=== PATIENT | male | born 1930 | race Caucasian/White ===

== ENCOUNTER 2017-12-02 17:43 | Emergency (ER) | payer MEDICARE, OTHER ==
[2017-12-02 18:01] VITALS: TEMP 96.4
--- NOTE | 2017-12-02 18:15 | ED ---
General Adult HPI - General Chief complaint: Psychiatric Symptoms Stated complaint: Altered Mental Status Time Seen by Provider: 12/02/17 18:00 Source: EMS, RN notes reviewed Mode of arrival: EMS Limitations: altered mental status - History of Present Illness Initial comments: 87-year-old male transferred from [facility] with increased agitation and aggression. [facility] patient has been aggressive towards other staff and residents at the [facility]. Patient is unable to contribute to history. He will denied pain complaints. He is unable to answer other questions. Patient does have history of dementia, unknown baseline mental status. Patient received 0.5 mg of Ativan prior to arrival. - Related Data Home Medications Medication Instructions Recorded Confirmed Acetaminophen Tab [Tylenol Tab] 500 mg PO Q8H 12/02/17 12/02/17 Acetaminophen Tab [Tylenol Tab] 650 mg PO Q6H PRN 12/02/17 12/02/17 Aspirin [Children's Aspirin] 81 mg PO DAILY 12/02/17 12/02/17 Baclofen [Lioresal] 10 mg PO BID PRN 12/02/17 12/02/17 Bisacodyl 10 mg RECTAL Q72H PRN 12/02/17 12/02/17 Carbidopa-Levodopa 25-250 mg 1 tab PO DAILY@1200 12/02/17 12/02/17 [Sinemet 25-250] Carbidopa-Levodopa 25-250 mg 2 tab PO Q12H 12/02/17 12/02/17 [Sinemet 25-250] Divalproex Sodium [Depakote] 125 mg PO DAILY@1600 12/02/17 12/02/17 HYDROcodone/APAP 5-325MG [[place] 1 tab PO Q6HR PRN 12/02/17 12/02/17 5-325] LORazepam [Ativan] 0.5 mg PO BID 12/02/17 12/02/17 Magnesium Hydroxide [Milk of 2,400 mg PO Q72H PRN 12/02/17 12/02/17 Magnesia] Mirtazapine [Remeron] 15 mg PO HS@2000 12/02/17 12/02/17 Omeprazole [PriLOSEC] 20 mg PO AC-BRKFST 12/02/17 12/02/17 Vit A/Vit C/Vit E/Zinc/Copper 1 cap PO DAILY 12/02/17 12/02/17 [ICAPS SOFTGEL] rOPINIRole HCL [Requip] 2 mg PO Q12H 12/02/17 12/02/17 Previous Rx's Medication Instructions Recorded Nitrofurantoin Monohyd/M-Cryst 100 mg PO Q12HR #14 cap 12/02/17 [Macrobid] Allergies Allergy/AdvReac Type Severity Reaction Status Date / Time No Known Allergies Allergy Unverified 12/02/17 18:08 Review of Systems ROS Statement: Those systems with pertinent positive or pertinent negative responses have been documented in the HPI. ROS Other: All systems not noted in ROS Statement are negative. Limitations: ROS unobtainable due to patients medical condition Past Medical History Past Medical History: Cancer, Dementia, Osteoarthritis (OA), Pneumonia Additional Past Medical History / Comment(s): parkensons skin ca dementia History of Any Multi-Drug Resistant Organisms: Unobtainable Smoking Status: Unknown if ever smoked Past Alcohol Use History: Unable to Obtain Past Drug Use History: Unable to Obtain General Exam Limitations: altered mental status General appearance: alert, in no apparent distress Head exam: Present: atraumatic, normocephalic Eye exam: Present: normal appearance, PERRL, EOMI Neck exam: Present: normal inspection. Absent: tenderness Respiratory exam: Present: normal lung sounds bilaterally. Absent: respiratory distress Cardiovascular Exam: Present: regular rate, normal rhythm GI/Abdominal exam: Present: soft. Absent: distended, tenderness, guarding Extremities exam: Present: normal inspection, normal capillary refill. Absent: pedal edema Neurological exam: Present: alert. Absent: oriented X3, motor sensory deficit Psychiatric exam: Present: agitated Skin exam: Present: warm, dry, intact. Absent: cyanosis, diaphoretic Course Vital Signs 12/02/17 12/02/17 17:52 18:55 Temperature 96.4 F L Pulse Rate 89 84 Respiratory 16 18 Rate Blood Pressure 138/63 154/68 O2 Sat by Pulse 98 100 Oximetry - Reevaluation(s) Reevaluation #1: 12/02/17 2100 Case discussed with patient's nurse from [employer]. She states he was given Ativan just prior to EMS arrival. This is his normal dose he takes Ativan twice daily. He is evaluated by psychiatrist at [facility]. 12/02/17 20:56 Reevaluation #2: 12/02/17 20:56 Patient remains calm, no agitation or aggression while in the emergency department. EKG Findings - EKG Comments: EKG Findings:: EKG shows normal sinus rhythm, left axis deviation, LVH, ventricular rate 86, para over 184, QRS duration 102, QTC 459, no signs of acute ischemia Medical Decision Making - Medical Decision Making 87-year-old male presenting from [facility] with increasing agitation and aggression towards staff. No family is available at the time my evaluation. Patient does have history of dementia. Workup is initiated for was of worsening agitation and aggression. Laboratory studies reveal normal white blood cell count, stable hemoglobin, normal electrolytes. Head CT is obtained, shows atrophy with no acute intracranial process. Chest x-ray negative for focal pneumonia. Urinalysis shows 181 white blood cells and positive leukocyte esterase. Symptoms may be reported to UTI. Patient will be started on antibiotics. - Lab Data Result diagrams: 12/02/17 18:44 12/02/17 18:44 Lab Results 12/02/17 12/02/17 12/02/17 Range/Units 18:44 18:44 18:44 WBC 10.2 (3.8-10.6) k/uL RBC 3.52 L (4.30-5.90) m/uL Hgb 11.4 L (13.0-17.5) gm/dL Hct 32.9 L (39.0-53.0) % MCV 93.6 (80.0-100.0) fL MCH 32.5 (25.0-35.0) pg MCHC 34.7 (31.0-37.0) g/dL RDW 13.8 (11.5-15.5) % Plt Count 194 (150-450) k/uL Neutrophils % 79 % Lymphocytes % 11 % Monocytes % 8 % Eosinophils % 1 % Basophils % 0 % Neutrophils # 8.0 H (1.3-7.7) k/uL Lymphocytes # 1.1 (1.0-4.8) k/uL Monocytes # 0.8 (0-1.0) k/uL Eosinophils # 0.1 (0-0.7) k/uL Basophils # 0.0 (0-0.2) k/uL PT (9.0-12.0) sec INR (<1.2) APTT (22.0-30.0) sec Sodium 141 (137-145) mmol/L Potassium 4.4 (3.5-5.1) mmol/L Chloride 104 (98-107) mmol/L Carbon Dioxide 28 (22-30) mmol/L Anion Gap 9 mmol/L BUN 42 H (9-20) mg/dL Creatinine 1.03 (0.66-1.25) mg/dL Est GFR (MDRD) Af Amer >60 (>60 ml/min/1.73 sqM) Est GFR (MDRD) Non-Af >60 (>60 ml/min/1.73 sqM) Glucose 89 (74-99) mg/dL Calcium 9.4 (8.4-10.2) mg/dL Total Bilirubin 0.3 (0.2-1.3) mg/dL AST 18 (17-59) U/L ALT 20 L (21-72) U/L Alkaline Phosphatase 63 (38-126) U/L Total Creatine Kinase 72 (55-170) U/L CK-MB (CK-2) 1.0 (0.0-2.4) ng/mL CK-MB (CK-2) Rel Index 1.4 Total Protein 6.2 L (6.3-8.2) g/dL Albumin 3.5 (3.5-5.0) g/dL 12/02/17 Range/Units 18:44 WBC (3.8-10.6) k/uL RBC (4.30-5.90) m/uL Hgb (13.0-17.5) gm/dL Hct (39.0-53.0) % MCV (80.0-100.0) fL MCH (25.0-35.0) pg MCHC (31.0-37.0) g/dL RDW (11.5-15.5) % Plt Count (150-450) k/uL Neutrophils % % Lymphocytes % % Monocytes % % Eosinophils % % Basophils % % Neutrophils # (1.3-7.7) k/uL Lymphocytes # (1.0-4.8) k/uL Monocytes # (0-1.0) k/uL Eosinophils # (0-0.7) k/uL Basophils # (0-0.2) k/uL PT 10.3 (9.0-12.0) sec INR 1.0 (<1.2) APTT 23.1 (22.0-30.0) sec Sodium (137-145) mmol/L Potassium (3.5-5.1) mmol/L Chloride (98-107) mmol/L Carbon Dioxide (22-30) mmol/L Anion Gap mmol/L BUN (9-20) mg/dL Creatinine (0.66-1.25) mg/dL Est GFR (MDRD) Af Amer (>60 ml/min/1.73 sqM) Est GFR (MDRD) Non-Af (>60 ml/min/1.73 sqM) Glucose (74-99) mg/dL Calcium (8.4-10.2) mg/dL Total Bilirubin (0.2-1.3) mg/dL AST (17-59) U/L ALT (21-72) U/L Alkaline Phosphatase (38-126) U/L Total Creatine Kinase (55-170) U/L CK-MB (CK-2) (0.0-2.4) ng/mL CK-MB (CK-2) Rel Index Total Protein (6.3-8.2) g/dL Albumin (3.5-5.0) g/dL Disposition Clinical Impression: Agitation, UTI (urinary tract infection) Disposition: HOME SELF-CARE Condition: Good Instructions: Urinary Tract Infection in Men (ED) Prescriptions: Nitrofurantoin Monohyd/M-Cryst [Macrobid] 100 mg PO Q12HR #14 cap Referrals: Jose Chen MD [Primary Care Provider] - 1-2 days Time of Disposition: 21:00
[2017-12-02 18:55] LABS: Basophils % (A) 0 %; Eosinophils # (A) 0.1 k/uL (0-0.7); Eosinophils % (A) 1 %; HCT 32.9 % (39.0-53.0); HGB 11.4 gm/dL (13.0-17.5); Lymphocytes # (A) 1.1 k/uL (1.0-4.8); Lymphocytes % (A) 11 %; MCH 32.5 pg (25.0-35.0); MCHC 34.7 g/dL (31.0-37.0); MCV 93.6 fL (80.0-100.0); Mean Platelet Volume 7.9; Monocytes # (A) 0.8 k/uL (0-1.0); Monocytes % (A) 8 %; Neutrophils % (A) 79 %; Platelet Count 194 k/uL (150-450); RBC 3.52 m/uL (4.30-5.90); RDW 13.8 % (11.5-15.5); WBC 10.2 k/uL (3.8-10.6)
[2017-12-02 18:57] VITALS: PULSE 84
[2017-12-02 19:03] LABS: ALT 20 U/L (21-72); AST 18 U/L (17-59); Albumin 3.5 g/dL (3.5-5.0); Alkaline Phosphatase 63 U/L (38-126); Anion Gap 9 mmol/L; Blood Urea Nitrogen 42 mg/dL (9-20); Calcium 9.4 mg/dL (8.4-10.2); Carbon Dioxide 28 mmol/L (22-30); Chloride 104 mmol/L (98-107); Glucose 89 mg/dL (74-99); Partial Thromboplastin Time 23.1 sec (22.0-30.0); Potassium 4.4 mmol/L (3.5-5.1); Prothrombin Time 10.3 sec (9.0-12.0); Sodium 141 mmol/L (137-145); Total Bilirubin 0.3 mg/dL (0.2-1.3); Total Protein 6.2 g/dL (6.3-8.2)
--- NOTE | 2017-12-02 20:21 | CT ---
EXAMINATION TYPE: CT brain wo con DATE OF EXAM: 12/02/2017 COMPARISON: NONE INDICATION: Altered mental status. DLP: 1168 mGycm, Automated exposure control for dose reduction was used. CONTRAST: None CT of the brain is performed utilizing 3 mm thick sections through the posterior fossa and 3 mm thick sections through the remaining calvarium. Study is performed within 24 hours of arrival to the hosp [facility]. No abnormal hyperdensity is present to suggest an acute intracranial hemorrhage. No mass lesion is evident. No acute infarcts are evident. There is periventricular white matter hypodensity, likely on the basis of chronic white matter ischemic changes. Ventricles and sulci are very prominent for the patient age. Paranasal sinuses and mastoid air cells within the [id number] are clear. IMPRESSIONS: 1. Atrophy with periventricular white matter ischemic change.
--- NOTE | 2017-12-02 20:33 | XR ---
EXAMINATION TYPE: XR chest 1V portable DATE OF EXAM: 12/02/2017 COMPARISON: NONE INDICATION: Altered mental status TECHNIQUE: Single frontal view of the chest is obtained. FINDINGS: The heart size is normal. The pulmonary vasculature is normal. There is some very subtle stranding at the lung bases. Minimal subsegmental atelectasis is not exclud ed. This is very mild. IMPRESSION: 1. Very minimal subsegmental atelectasis may be at the lung bases. The lungs are otherwise clear.
[2017-12-02 20:58] LABS: Amorphous Sediment,Urine Rare /hpf; Appearance,Urine Cloudy (Clear); Bacteria,Urine Occasional /hpf; Bilirubin,Urine Negative (Negative); Blood,Urine Negative (Negative); Color,Urine Yellow; Glucose,Urine (UA) Negative (Negative); Ketones,Urine Trace (Negative); Leukocyte Esterase,Urine Large (Negative); Mucus,Urine Occasional /hpf; PH, Urine 6.5 (5.0-8.0); Protein,Urine Trace (Negative); RBC,Urine 2 /hpf (0-5); Specific Gravity,Urine 1.021 (1.001-1.035); Urobilinogen,Urine <2.0 mg/dL (<2.0); WBC,Urine 181 /hpf (0-5)
[2017-12-02] MEDS ORDERED: cefTRIAXone IN SWFI 1,000 MG/10 ML SYRINGE IVP STA (21:03)
[2017-12-02 21:06] LABS: Amphetamine Screen,Urine Not Detected (NotDetected); Barbiturate Screen,Urine Not Detected (NotDetected); Benzodiazepines Screen,Urine Detected (NotDetected); Cocaine Screen,Urine Not Detected (NotDetected); Methadone Screen, Urine Not Detected (NotDetected); Opiate Screen,Urine Detected (NotDetected); Oxycodone Screen, Urine Not Detected (NotDetected); Phencyclidine Screen,Urine Not Detected (NotDetected); Tricyclic Antidepressant,Urine Not Detected (NotDetected); Urn Cannabinoid Scrn Not Detected (NotDetected)
[2017-12-02 21:33] VITALS: BP 145/66; RESP 16
== END 2017-12-02 21:58 | disposition home or self-care (01) ==
LOC: EC 17:43
DX: N39.0 Urinary tract infection, site not specified (principal); R45.1 Restlessness and agitation; G31.9 Degenerative disease of nervous system, unspecified; R41.82 Altered mental status, unspecified; G20 Parkinson's disease; F02.81 Dementia in other diseases classified elsewhere, unspecified severity, with behavioral disturbance; M19.90 Unspecified osteoarthritis, unspecified site; Z79.82 Long term (current) use of aspirin; Z79.899 Other long term (current) drug therapy
CPT/HCPCS: 36415; 93005; 80053; 82550; 82553; 85025; 85610; 85730; 81001; 80306; 87086; 71045; 70450; 99285; 96374; J0696; 87077; 87186

== ENCOUNTER 2019-01-02 13:47 | Inpatient (IN) | payer MEDICARE, OTHER ==
[2019-01-02] MEDS ORDERED: SODIUM CHLORIDE 0.9% 1,000 ML IV STA ×2 (13:56)
--- NOTE | 2019-01-02 14:06 | ED ---
Fever HPI - General Chief Complaint: Fever Stated Complaint: Dehydration Time Seen by Provider: 01/02/19 13:47 Source: patient, EMS, RN notes reviewed, old records reviewed Mode of arrival: EMS Limitations: no limitations - History of Present Illness Initial Comments: This is a 88-year-old male who presents by EMS from a local custodial with complaints basically a failure to thrive. Patient does have pneumonia was diagnosed also with influenza type A and the first of this month he's has had decreased oral intake. He normally is awake and alert though confused because of his dementia. Patient has been declining over the past 2-3 days. No other information is available other than on record or present with the patient at this time. MD Complaint: fever, malaise, other - Related Data Home Medications Medication Instructions Recorded Confirmed Acetaminophen Tab [Tylenol Tab] 500 mg PO Q8H PRN 12/02/17 01/02/19 Aspirin [Children's Aspirin] 81 mg PO HS 12/02/17 01/02/19 Baclofen [Lioresal] 10 mg PO BID PRN 12/02/17 01/02/19 Bisacodyl 10 mg RECTAL Q72H PRN 12/02/17 01/02/19 Carbidopa-Levodopa 25-250 mg 1 tab PO PC-LUNCH 12/02/17 01/02/19 [Sinemet 25-250] Carbidopa-Levodopa 25-250 mg 2 tab PO BID@07,199912/02/17 01/02/19 [Sinemet 25-250] Divalproex Sodium [Depakote] 125 mg PO HS 12/02/17 01/02/19 HYDROcodone/APAP 5-325MG [[place] 1 tab PO BID 12/02/17 01/02/19 5-325] LORazepam [Ativan] 0.5 mg PO BID 12/02/17 01/02/19 Magnesium Hydroxide [Milk of 2,400 mg PO Q72H PRN 12/02/17 01/02/19 Magnesia] Mirtazapine [Remeron] 15 mg PO HS@199912/02/17 01/02/19 rOPINIRole HCL [Requip] 2 mg PO BID@0700,199912/02/17 01/02/19 Acetaminophen Suppository [Tylenol 650 mg RECTAL Q6H PRN 01/02/19 01/02/19 Suppository] Divalproex Sodium 250 mg PO DAILY 01/02/19 01/02/19 HYDROcodone/APAP 5-325MG [[place] 1 tab PO Q8H PRN 01/02/19 01/02/19 5-325] Levofloxacin [Levaquin] 500 mg PO DAILY 01/02/19 01/02/19 Multivit-Min/FA/Lycopen/Lutein 1 tab PO HS 01/02/19 01/02/19 [Centrum Silver Tablet] Oseltamivir [Tamiflu] 75 mg PO Q12HR 01/02/19 01/02/19 Polyethylene Glycol 3350 [Miralax] 17 gm PO HS 01/02/19 01/02/19 Ranitidine HCl [Zantac] 75 mg PO DAILY 01/02/19 01/02/19 Sennosides [Senna] 17.2 mg PO HS 01/02/19 01/02/19 Allergies Allergy/AdvReac Type Severity Reaction Status Date / Time No Known Allergies Allergy Verified 01/02/19 14:08 Review of Systems ROS Statement: Those systems with pertinent positive or pertinent negative responses have been documented in the HPI. ROS Other: All systems not noted in ROS Statement are negative. Limitations: ROS unobtainable due to patients medical condition Past Medical History Past Medical History: Cancer, Dementia, Osteoarthritis (OA), Pneumonia Additional Past Medical History / Comment(s): parkensons skin ca dementia History of Any Multi-Drug Resistant Organisms: Unobtainable Past Surgical History: Unable to Obtain Past Psychological History: No Psychological Hx Reported Smoking Status: Unknown if ever smoked Past Alcohol Use History: Unable to Obtain Past Drug Use History: Unable to Obtain General Exam - General Exam Comments Initial Comments: This is a well-developed sec appearing male who was awake alert but lethargic Limitations: no limitations General appearance: alert, lethargic Head exam: Present: atraumatic, normocephalic, normal inspection Eye exam: Present: normal appearance, PERRL, EOMI. Absent: scleral icterus, conjunctival injection, periorbital swelling ENT exam: Present: mucous membranes dry Neck exam: Present: normal inspection, full ROM, other. Absent: tenderness, meningismus, lymphadenopathy Respiratory exam: Present: rhonchi (The pleural lobe), decreased breath sounds (ALLERGY reported) Cardiovascular Exam: Present: regular rate, normal rhythm, normal heart sounds. Absent: systolic murmur, diastolic murmur, rubs, gallop, clicks GI/Abdominal exam: Present: soft, normal bowel sounds. Absent: distended, tenderness, guarding, rebound, rigid Extremities exam: Present: normal inspection, full ROM, normal capillary refill. Absent: tenderness, pedal edema, joint swelling, calf tenderness Back exam: Present: normal inspection Neurological exam: Present: alert, altered, CN II-XII intact. Absent: motor sensory deficit Psychiatric exam: Present: normal mood, flat affect Skin exam: Present: warm, dry, intact, normal color. Absent: rash Course Vital Signs 01/02/19 13:54 Temperature 99.8 F H Pulse Rate 90 Respiratory 22 Rate Blood Pressure 140/76 O2 Sat by Pulse 96 Oximetry Medical Decision Making - Medical Decision Making The patient will be admitted I did discuss the case with Dr. Cunningham. Patient does have fever bilateral pneumonia dehydration and failure to thrive - Lab Data Result diagrams: 01/02/19 14:10 01/02/19 14:10 Lab Results 01/02/19 01/02/19 01/02/19 Range/Units 14:10 14:10 14:10 WBC 9.5 (3.8-10.6) k/uL RBC 4.18 L (4.30-5.90) m/uL Hgb 13.3 (13.0-17.5) gm/dL Hct 39.9 (39.0-53.0) % MCV 95.5 (80.0-100.0) fL MCH 31.8 (25.0-35.0) pg MCHC 33.3 (31.0-37.0) g/dL RDW 14.1 (11.5-15.5) % Plt Count 169 (150-450) k/uL Neutrophils % 83 % Lymphocytes % 11 % Monocytes % 4 % Eosinophils % 1 % Basophils % 0 % Neutrophils # 7.9 H (1.3-7.7) k/uL Lymphocytes # 1.0 (1.0-4.8) k/uL Monocytes # 0.4 (0-1.0) k/uL Eosinophils # 0.1 (0-0.7) k/uL Basophils # 0.0 (0-0.2) k/uL PT (9.0-12.0) sec INR (<1.2) APTT (22.0-30.0) sec Sodium 148 H (137-145) mmol/L Potassium 4.6 (3.5-5.1) mmol/L Chloride 110 H (98-107) mmol/L Carbon Dioxide 30 (22-30) mmol/L Anion Gap 8 mmol/L BUN 71 H (9-20) mg/dL Creatinine 1.56 H (0.66-1.25) mg/dL Est GFR (CKD-EPI)AfAm 45 (>60 ml/min/1.73 sqM) Est GFR (CKD-EPI)NonAf 39 (>60 ml/min/1.73 sqM) Glucose 82 (74-99) mg/dL Plasma Lactic Acid Sergo (0.7-2.0) mmol/L Calcium 9.4 (8.4-10.2) mg/dL Magnesium 2.6 H (1.6-2.3) mg/dL Total Bilirubin 0.7 (0.2-1.3) mg/dL AST 63 H (17-59) U/L ALT 32 (21-72) U/L Alkaline Phosphatase 65 (38-126) U/L Creatine Kinase 742 H (55-170) U/L Troponin I (0.000-0.034) ng/mL NT-Pro-B Natriuret Pep 506 pg/mL Total Protein 6.9 (6.3-8.2) g/dL Albumin 3.7 (3.5-5.0) g/dL 01/02/19 01/02/19 01/02/19 Range/Units 14:10 14:10 14:10 WBC (3.8-10.6) k/uL RBC (4.30-5.90) m/uL Hgb (13.0-17.5) gm/dL Hct (39.0-53.0) % MCV (80.0-100.0) fL MCH (25.0-35.0) pg MCHC (31.0-37.0) g/dL RDW (11.5-15.5) % Plt Count (150-450) k/uL Neutrophils % % Lymphocytes % % Monocytes % % Eosinophils % % Basophils % % Neutrophils # (1.3-7.7) k/uL Lymphocytes # (1.0-4.8) k/uL Monocytes # (0-1.0) k/uL Eosinophils # (0-0.7) k/uL Basophils # (0-0.2) k/uL PT 10.5 (9.0-12.0) sec INR 1.0 (<1.2) APTT 31.2 H (22.0-30.0) sec Sodium (137-145) mmol/L Potassium (3.5-5.1) mmol/L Chloride (98-107) mmol/L Carbon Dioxide (22-30) mmol/L Anion Gap mmol/L BUN (9-20) mg/dL Creatinine (0.66-1.25) mg/dL Est GFR (CKD-EPI)AfAm (>60 ml/min/1.73 sqM) Est GFR (CKD-EPI)NonAf (>60 ml/min/1.73 sqM) Glucose (74-99) mg/dL Plasma Lactic Acid Sergo 1.4 (0.7-2.0) mmol/L Calcium (8.4-10.2) mg/dL Magnesium (1.6-2.3) mg/dL Total Bilirubin (0.2-1.3) mg/dL AST (17-59) U/L ALT (21-72) U/L Alkaline Phosphatase (38-126) U/L Creatine Kinase (55-170) U/L Troponin I 0.027 (0.000-0.034) ng/mL NT-Pro-B Natriuret Pep pg/mL Total Protein (6.3-8.2) g/dL Albumin (3.5-5.0) g/dL - EKG Data -: EKG Interpreted by [place] EKG shows normal: sinus rhythm (EKG shows sinus rhythm of 92. Interval 160 QRS duration 100 daily since QTC 360/445 with anterior fascicular block and minimal voltage criteria for LVH anteroseptal infarct of undetermined. Occasional PACs) - Radiology Data Radiology results: report reviewed (Bibasilar infiltrates some evidence of perihilar infiltrate), image reviewed Disposition Clinical Impression: Influenza, Bilateral pneumonia, Dehydration, Renal insufficiency syndrome, Failure to thrive in adult, Alzheimer's dementia Disposition: ADMITTED IP TO THIS [facility] Condition: Fair Referrals: Nonstaff,Physician [Primary Care Provider] - 1-2 days
[2019-01-02 14:35] LABS: Basophils % (A) 0 %; Eosinophils # (A) 0.1 k/uL (0-0.7); Eosinophils % (A) 1 %; HCT 39.9 % (39.0-53.0); HGB 13.3 gm/dL (13.0-17.5); Lymphocytes % (A) 11 %; MCH 31.8 pg (25.0-35.0); MCHC 33.3 g/dL (31.0-37.0); MCV 95.5 fL (80.0-100.0); Mean Platelet Volume 8.7; Monocytes # (A) 0.4 k/uL (0-1.0); Monocytes % (A) 4 %; Neutrophils # (A) 7.9 k/uL (1.3-7.7); Neutrophils % (A) 83 %; Platelet Count 169 k/uL (150-450); RBC 4.18 m/uL (4.30-5.90); RDW 14.1 % (11.5-15.5); WBC 9.5 k/uL (3.8-10.6)
[2019-01-02 14:43] LABS: Partial Thromboplastin Time 31.2 sec (22.0-30.0); Prothrombin Time 10.5 sec (9.0-12.0)
[2019-01-02 15:13] LABS: Albumin 3.7 g/dL (3.5-5.0); Calcium 9.4 mg/dL (8.4-10.2); Magnesium 2.6 mg/dL (1.6-2.3); Potassium 4.6 mmol/L (3.5-5.1); Total Bilirubin 0.7 mg/dL (0.2-1.3); Total Protein 6.9 g/dL (6.3-8.2)
--- NOTE | 2019-01-02 15:35 | XR ---
EXAMINATION TYPE: XR chest 2V DATE OF EXAM: 01/02/2019 COMPARISON: 12/02/2017 TECHNIQUE: PA and lateral views submitted. HISTORY: Difficulty breathing FINDINGS: There is bilateral infiltrates and small effusions. There are calcified nodule suggestive of granulom a in the left lung. Atherosclerotic change aorta. Diffuse osteopenia. No pneumothorax. Heart is enlar ged. Degenerative changes of the spine. IMPRESSION: 1. Bilateral lower lobe areas of infiltrate with patchy right perihilar infiltrate correlate for pneu monia otherwise consider CHF. Underlying COPD suspected. 2. Nodule left upper lobe lingular segment appears related to granuloma stable from prior exam.
[2019-01-02] MEDS ORDERED: PNEUMONIA PROTOCOL UTILIZED 1 EACH MISC PO PRN (16:17)
[2019-01-02] MEDS ORDERED: AZITHROMYCIN 500 MG in SODIUM CHLORIDE 0.9% 250 ML IVPB STA (16:17)
[2019-01-02] MEDS ORDERED: BISACODYL 10 MG SUPP RECTAL PRN (16:18)
[2019-01-02] MEDS ORDERED: HYDROcodone/APAP 5-325MG 1 EACH TAB PO PRN (16:18)
[2019-01-02] MEDS ORDERED: BACLOFEN 10 MG TAB PO PRN (16:18)
[2019-01-02] MEDS ORDERED: MAGNESIUM HYDROXIDE 2,400 MG/10 ML CUP PO PRN (16:18)
[2019-01-02] MEDS ORDERED: ACETAMINOPHEN TAB 500 MG TAB PO PRN (16:18)
[2019-01-02] MEDS ORDERED: ALPRAZolam 0.25 MG TAB PO PRN (18:04)
[2019-01-02] MEDS: SODIUM CHLORIDE 0.9% 1,000 ML IV SCH (19:40)
[2019-01-02] MEDS: IPRATROPIUM-ALBUTEROL 3 ML NEB INHALATION SCH (20:36)
[2019-01-02] MEDS: SYMBICORT 160-4.5 MCG INHALER INHALATION SCH (20:40)
--- NOTE | 2019-01-02 21:02 | HP ---
HISTORY AND PHYSICAL DATE OF SERVICE: 01/02/2019 CHIEF COMPLAINTS: Shortness of breath and cough and fever. HISTORY OF PRESENT ILLNESS: This 88-year-old gentleman with a past medical history of multiple medical problems, including dementia, history of DJD, history of Parkinson's, being followed by Dr. Cannon in the [facility], was complaining of increased weakness, tiredness, fever, cough and sputum. The patient was diagnosed apparently to have flu earlier this month and was being treated for pneumonia. Because of a decline over the last 2 or 3 days, patient was sent to [facility] and admitted for further evaluation and treatment. Chest x-ray showed some cardiomegaly and possible pneumonia also. The patient is nonverbal and unable to give a coherent history. Most of the history has been taken from my discussion with staff and review of the chart at this time. PAST MEDICAL HISTORY: 1. History of dementia. 2. History of DJD. 3. History of pneumonia. 4. Parkinson's. 5. History of skin cancer. HOME MEDICATIONS: 1. Requip 2 mg p.o. b.i.d. 2. Senna 17.2 mg at bedtime. 3. Zantac 75 mg p.o. daily. 4. MiraLAX 17 grams daily. 5. Tamiflu 75 mg p.o. b.i.d. 6. Multivitamins 1 p.o. daily. 7. Remeron 15 mg at bedtime. 8. Milk of Magnesia 2400 q.72 hours. 9. Levaquin 500 mg p.o. daily. 10.Ativan 0.5 mg b.i.d. 11.[place]man 5 mg b.i.d. 12.Depakote 125 mg p.o. at bedtime. 13.Depakote 250 mg p.o. daily. 14.Sinemet 25/250 one at lunch and tablets p.o. b.i.d. 15.Bisacodyl 10 mg rectally p.r.n. 16.Baclofen 10 mg b.i.d. p.r.n. 17.Aspirin 81 mg at bedtime. 18.Tylenol p.r.n. 19.Tylenol suppository 650 q.6 p.r.n. ALLERGIES: NONE. Family history, social history, review of systems could not be taken because of the patient's change in mental status. PHYSICAL EXAMINATION: Patient is conscious but confused. Pulse is 87, blood pressure 180/74, respiration 15, temperature 98.7, pulse ox 92% on 2 L. HEENT: Conjunctivae normal. Oral mucosa moist. NECK: No jugular venous distention. No carotid bruit. No lymph node enlargement. CARDIOVASCULAR SYSTEM: S1, S2 muffled. RESPIRATORY SYSTEM: Breath sounds diminished at the bases. A few scattered rhonchi and crackles. ABDOMEN: Soft, non-tender. No mass palpable. LEGS: No edema. No swelling. NERVOUS SYSTEM: Full exam could not be taken. Tone is increased. Diffuse tremors also present, suggestive of parkinsonism. LYMPHATICS: No lymph node palpable in neck, axillae or groin. SKIN: No ulcer, rash, bleeding. JOINTS: No active deforming arthropathy. LABS: WBC 9.5, hemoglobin 13.3. Sodium 148, potassium 4.6, creatinine 1.56, and magnesium is 2.6. Creatine kinase 742. ASSESSMENT: 1. Bilateral pneumonia with possible sepsis. 2. Change in mental status, acute on chronic metabolic encephalopathy. 3. Parkinson's. 4. Recent flu. 5. Hyponatremia with dehydration with mild acute renal failure with prerenal acute renal failure. 6. Moderate to severe protein-calorie malnutrition. 7. Increased creatine kinase and mild rhabdomyolysis. 8. History of dementia. 9. History of degenerative joint disease. 10.History of skin cancer. RECOMMENDATIONS AND DISCUSSION: In this 88-year-old gentleman who presented with multiple complex medical issues, we will monitor the patient closely, continue the current management, continue symptomatic treatment, continue with bronchodilators, continue with the antiparkinson medications. I would recommend broad-spectrum IV antibiotics. Obtain cultures. Pulmonary consultation. A 2D echo with Doppler to evaluate the cardiac status. Otherwise, resume the home medications. DVT prophylaxis. Prognosis guarded because of multiple complex medical issues. Further recommendations to follow. A copy of this dictation is being forwarded to Dr. Cannon, who is the primary physician. MMNIKOL / AUDREYN: [id number] /
[2019-01-02] MEDS: CARBIDOPA-LEVODOPA 25-250 MG 1 EACH TAB PO SCH (21:28)
[2019-01-02] MEDS: OSELTAMIVIR 60 MG/10 ML ORAL SYRINGE PO SCH (21:29)
[2019-01-02] MEDS: DIVALPROEX SPRINKLE 125 MG CAP.SPRINK PO SCH (21:29)
[2019-01-02] MEDS: LORazepam 0.5 MG TAB PO SCH (21:29)
[2019-01-02] MEDS: ASPIRIN 81 MG PO SCH (21:29)
[2019-01-02] MEDS: MIRTAZAPINE 15 MG TAB PO SCH (21:29)
[2019-01-02] MEDS: HEPARIN SODIUM,PORCINE 5,000 UNIT/ML 1 ML VIAL SQ SCH (21:29)
[2019-01-02] MEDS: SENNOSIDES 8.6 MG TAB PO SCH (21:30)
[2019-01-02] MEDS: POLYETHYLENE GLYCOL 3350 17 GM POWD.PACK PO SCH (21:30)
[2019-01-02] MEDS: MULTIVITAMINS, THERA 1 EACH TAB PO SCH (21:38)
[2019-01-03] MEDS: IPRATROPIUM-ALBUTEROL 3 ML NEB INHALATION PRN (00:02)
[2019-01-03 02:37] LABS: Appearance,Urine Clear (Clear); Bacteria,Urine Rare /hpf; Bilirubin,Urine Negative (Negative); Blood,Urine Small (Negative); Color,Urine Yellow; Glucose,Urine (UA) Negative (Negative); Ketones,Urine 1+ (Negative); Leukocyte Esterase,Urine Negative (Negative); Mucus,Urine Occasional /hpf; Nitrite,Urine Negative (Negative); PH, Urine 5.5 (5.0-8.0); Protein,Urine 1+ (Negative); RBC,Urine <1 /hpf (0-5); Specific Gravity,Urine 1.026 (1.001-1.035); Urobilinogen,Urine <2.0 mg/dL (<2.0); WBC,Urine 4 /hpf (0-5)
[2019-01-03] MEDS: SODIUM CHLORIDE 0.9% 1,000 ML IV SCH ×3 (04:18→23:00)
[2019-01-03 04:42] VITALS: BMI 17.7
[2019-01-03] MEDS: LORazepam 0.5 MG TAB PO SCH ×3 (07:59→21:53)
[2019-01-03] MEDS: PANTOPRAZOLE 40 MG TABLET PO SCH (07:59)
[2019-01-03] MEDS: DIVALPROEX 250 MG TABLET.DR PO SCH (08:00)
[2019-01-03] MEDS: FAMOTIDINE 20 MG TAB PO SCH (08:00)
[2019-01-03] MEDS: AZITHROMYCIN 500 MG TAB PO SCH (08:01)
[2019-01-03] MEDS: CARBIDOPA-LEVODOPA 25-250 MG 1 EACH TAB PO SCH ×3 (08:02→19:51)
[2019-01-03] MEDS: HEPARIN SODIUM,PORCINE 5,000 UNIT/ML 1 ML VIAL SQ SCH ×2 (08:06→20:47)
[2019-01-03] MEDS: IPRATROPIUM-ALBUTEROL 3 ML NEB INHALATION SCH ×4 (08:58→21:21)
[2019-01-03] MEDS: SYMBICORT 160-4.5 MCG INHALER INHALATION SCH ×2 (08:58→21:23)
[2019-01-03 09:27] LABS: Basophils % (A) 0 %; Eosinophils % (A) 0 %; HCT 34.7 % (39.0-53.0); HGB 11.6 gm/dL (13.0-17.5); Lymphocytes % (A) 14 %; MCH 32.4 pg (25.0-35.0); MCHC 33.4 g/dL (31.0-37.0); Mean Platelet Volume 8.8; Monocytes # (A) 0.4 k/uL (0-1.0); Monocytes % (A) 6 %; Neutrophils # (A) 5.3 k/uL (1.3-7.7); Neutrophils % (A) 78 %; Platelet Count 133 k/uL (150-450); RBC 3.58 m/uL (4.30-5.90); RDW 13.7 % (11.5-15.5); WBC 6.8 k/uL (3.8-10.6)
[2019-01-03 09:45] LABS: Calcium 8.4 mg/dL (8.4-10.2)
--- NOTE | 2019-01-03 11:03 | ECHOF ---
Referral Reason:chf MEASUREMENTS -------- HEIGHT: 180.3 cm WEIGHT: 55.8 kg BP: RVIDd: 1.8 cm (< 3.3) IVSd: 0.7 cm (0.6 - 1.1) LVIDd: 5.0 cm (3.9 - 5.3) LVPWd: 0.9 cm (0.6 - 1.1) IVSs: 1.3 cm LVIDs: 3.6 cm LVPWs: 1.3 cm LAESV Index (A-L): 31.58 ml/m Ao Diam: 3.3 cm (2.0 - 3.7) AV Cusp: 1.6 cm (1.5 - 2.6) LA Diam: 2.9 cm (2.7 - 3.8) MV EXCURSION: 20.347 mm (> 18.000) MV EF SLOPE: 126 mm/s (70 - 150) EPSS: 0.8 cm MV E Cooper: 0.64 m/s MV DecT: 198 ms MV A Cooper: 0.91 m/s MV E/A Ratio: 0.70 AR PHT: 281 ms RAP: 5.00 mmHg RVSP: 38.46 mmHg FINDINGS -------- Sinus rhythm with extra systolic beats. Pt is uncooperative The left ventricular size is normal. Left ventricular wall thickness is normal. Overall left vent ricular systolic function is low-normal with, an EF between 50 - 55 %. The right ventricle is normal in size. LA is midly dilated 29-33ml/m2. The right atrial size is normal. Aortic valve is trileaflet and is mildly thickened. There is mild aortic regurgitation. The mitral valve leaflets are mildly thickened. Mild mitral annular calcification present. Mild-t o-moderate mitral regurgitation is present. Mild tricuspid regurgitation present. There is mild pulmonary hypertension. The right ventricular systolic pressure, as measured by Doppler, is 38.46mmHg. Pulmonic valve appears structurally normal. The aortic root size is normal. IVC Not well visulized. There is a small, generalized pericardial effusion present. CONCLUSIONS -------- 1. Sinus rhythm with extra systolic beats. 2. Pt is uncooperative 3. The left ventricular size is normal. 4. Left ventricular wall thickness is normal. 5. Overall left ventricular systolic function is low-normal with, an EF between 50 - 55 %. 6. The right ventricle is normal in size. 7. LA is midly dilated 29-33ml/m2. 8. The right atrial size is normal. 9. Aortic valve is trileaflet and is mildly thickened. 10. There is mild aortic regurgitation. 11. The mitral valve leaflets are mildly thickened. 12. Mild mitral annular calcification present. 13. [id number] mitral regurgitation is present. 14. Mild tricuspid regurgitation present. 15. There is mild pulmonary hypertension. 16. The right ventricular systolic pressure, as measured by Doppler, is 38.46mmHg. 17. Pulmonic valve appears structurally normal. 18. The aortic root size is normal. 19. IVC Not well visulized. 20. There is a small, generalized pericardial effusion present. BRICK VENEER MAKER: Lavern Rascon RDCS
--- NOTE | 2019-01-03 13:43 | XR ---
EXAMINATION TYPE: XR chest 2V DATE OF EXAM: 01/03/2019 COMPARISON: Chest x-ray from yesterday and older study December 02, 2017 HISTORY: Pneumonia progress study. TECHNIQUE: Frontal and lateral views of the chest are obtained. FINDINGS: There is chronic parenchymal change with persistent right upper lobe and bibasilar opaciti es. No large pleural effusion or pneumothorax is seen bilaterally.. The cardiac silhouette size sonali ins enlarged. The osseous structures are intact. IMPRESSION: Chronic parenchymal changes with persistent inferior right upper lobe acute infiltrate an d bibasilar acute infiltrate and/or atelectasis. No significant change from most recent chest x-ray.
[2019-01-03] MEDS: MIRTAZAPINE 15 MG TAB PO SCH (19:51)
[2019-01-03] MEDS: OSELTAMIVIR 60 MG/10 ML ORAL SYRINGE PO SCH (20:48)
[2019-01-03] MEDS: SENNOSIDES 8.6 MG TAB PO SCH ×2 (20:49→21:52)
[2019-01-03] MEDS: MULTIVITAMINS, THERA 1 EACH TAB PO SCH ×2 (20:50→21:54)
[2019-01-03] MEDS: DIVALPROEX SPRINKLE 125 MG CAP.SPRINK PO SCH ×2 (20:50→21:53)
[2019-01-03] MEDS: POLYETHYLENE GLYCOL 3350 17 GM POWD.PACK PO SCH (20:50)
[2019-01-03] MEDS: ASPIRIN 81 MG PO SCH ×2 (20:50→21:54)
--- NOTE | 2019-01-04 00:27 | PN ---
PROGRESS NOTE DATE OF SERVICE: 01/03/2019. HISTORY: This 88-year-old gentleman was admitted with bilateral pneumonia, also change in mental status. Patient previously had a recent flu, but repeat flu testing was positive. Patient is still confused and the patient also had concerns of aspiration. Speech Pathology evaluation has been sought. At this time the patient is being closely monitored. Chest x-ray showed bilateral lesions. PAST MEDICAL HISTORY: Reviewed. REVIEW OF SYSTEMS: Could not be taken. CURRENT MEDICATIONS: Reviewed, include: 1. Tylenol suppositories. 2. [place] 5 mg every 8 hours p.r.n. 3. DuoNeb q.i.d. and p.r.n. 4. Xanax 0.5 t.i.d. 5. Aspirin 81 mg at bedtime. 6. Zithromax 500 mg. 8. Symbicort 4.5 two puffs b.i.d. 9. Sinemet 20/250 two puffs b.i.d. 10.Rocephin 1 g daily. 11.Depakote 125 mg p.o. at bedtime. 12.Pepcid 20 mg p.o. daily. 13.Heparin [id number] subcu b.i.d. 14.Ativan 0.5 mg at night. 15.Magnesium. 16.Remeron. 17.Multivitamins. 18.Thiamine. 19.Protonix. 20.Senokot. PHYSICAL EXAMINATION: The patient is conscious, confused. Pulse is 80, blood pressure is 150/70, respirations 20, temperature 98.2, pulse ox 98% on 4 L. HEENT: Conjunctivae normal. Oral mucosa moist. NECK: No jugular venous distention. No lymph nodes palpable. CARDIOVASCULAR: S1 and S2 muffled. Few scattered rhonchi. No crackles. ABDOMEN: Soft. NERVOUS SYSTEM: Diffusely weak, emaciated and the patient also has increased tone also. Coarse tremors also present. SKIN: No rash, no bleeding. LAB STUDIES: WBC 6.8, hemoglobin 11.6, sodium 147. is positive. ASSESSMENT: 1. Bilateral pneumonia, possibly gram-negative with possible sepsis present on admission. 2. Acute influenza, possible recurrence. 3. Change in mental status, acute on chronic metabolic encephalopathy. 4. Parkinson's. 5. Recent flu. 6. Hypernatremia with dehydration with mild acute renal failure with acute renal failure present on admission. 7. Moderate to severe protein calorie malnutrition. 8. Increased creatine kinase with mild rhabdomyolysis. 9. History of dementia. 10.History of degenerative joint disease. 11.History of skin cancer. RECOMMENDATIONS AND DISCUSSION: Recommend to continue current medications, monitoring and symptomatic treatment. At this time we will monitor the patient closely. Otherwise, continue with IV fluids. Continue with antiviral medication. Continue the broad-spectrum IV antibiotics. Speech pathology to evaluate for the swallow evaluation. Otherwise, guarded prognosis because of multiple complex medical recommendations. Further recommendations to follow. Will also obtain pulmonary consultation. Patient is currently NO CODE. MMODL / IJN: [id number] / MTDD
[2019-01-04] MEDS: SYMBICORT 160-4.5 MCG INHALER INHALATION SCH (07:17)
[2019-01-04] MEDS: IPRATROPIUM-ALBUTEROL 3 ML NEB INHALATION SCH ×4 (07:17→19:36)
[2019-01-04 07:27] LABS: Basophils % (A) 0 %; Eosinophils % (A) 0 %; HCT 35.4 % (39.0-53.0); HGB 11.5 gm/dL (13.0-17.5); Lymphocytes # (A) 0.9 k/uL (1.0-4.8); Lymphocytes % (A) 11 %; MCHC 32.3 g/dL (31.0-37.0); MCV 95.9 fL (80.0-100.0); Mean Platelet Volume 10.2; Monocytes # (A) 0.5 k/uL (0-1.0); Monocytes % (A) 6 %; Neutrophils # (A) 6.9 k/uL (1.3-7.7); Neutrophils % (A) 82 %; Platelet Count 154 k/uL (150-450); RBC 3.69 m/uL (4.30-5.90); RDW 14.4 % (11.5-15.5); WBC 8.5 k/uL (3.8-10.6)
[2019-01-04 07:52] LABS: Calcium 8.7 mg/dL (8.4-10.2); Potassium 4.5 mmol/L (3.5-5.1)
[2019-01-04] MEDS: LORazepam 0.5 MG TAB PO SCH (08:45)
[2019-01-04] MEDS: SODIUM CHLORIDE 0.9% 1,000 ML IV SCH ×2 (08:45→19:42)
[2019-01-04] MEDS: HEPARIN SODIUM,PORCINE 5,000 UNIT/ML 1 ML VIAL SQ SCH ×2 (11:09→21:47)
[2019-01-04] MEDS: FAMOTIDINE 20 MG TAB PO SCH (11:10)
[2019-01-04] MEDS: PANTOPRAZOLE 40 MG TABLET PO SCH (11:10)
[2019-01-04] MEDS: AZITHROMYCIN 500 MG TAB PO SCH (11:10)
[2019-01-04] MEDS: CARBIDOPA-LEVODOPA 25-250 MG 1 EACH TAB PO SCH ×3 (11:10→21:35)
[2019-01-04] MEDS: DIVALPROEX 250 MG TABLET.DR PO SCH (11:10)
[2019-01-04] MEDS ORDERED: ALPRAZolam 0.25 MG TAB PO PRN (13:11)
--- NOTE | 2019-01-04 16:43 | CONS ---
CONSULTATION PULMONARY/CRITICAL CARE CONSULTATION: DATE OF CONSULTATION: 01/04/2019 This is an 88-year-old male who is not a particularly good historian. The patient just mumbles and does not really give full answers. Anyway, the patient apparently resides at one of the nursing homes; [facility]. He apparently was brought in because of failure to thrive. The patient apparently was diagnosed as having influenza A at the first of the month and he has apparently also been diagnosed as having pneumonia. He has had poor oral intake. He is normally awake and alert but very confused. The patient has been declining over the last 2 or 3 days, and for that reason he was brought to the emergency room to be evaluated. He was brought here by EMS. Apparently he was found to have temperature elevation as well and possible dehydration. Again, the patient cannot give any additional history. CURRENT HOME MEDICATIONS: Include: 1. Tylenol. 2. Aspirin. 3. Baclofen. 4. Bisacodyl. 5. Sinemet. 6. Depakote. 7. Tinnie. 8. Ativan. 9. Milk of Magnesia. 10.Remeron. 11.Requip. 12.Tylenol suppository. 13.Levaquin. 14.Multiple vitamins. 15.Tamiflu. 16.MiraLAX. 17.Zantac. 18.Senna. ALLERGIES: DENIED. PAST MEDICAL HISTORY: Apparently positive for: 1. Skin cancer. 2. Dementia. 3. Osteoarthritis. 4. Pneumonia. 5. Parkinson's disease. 6. He apparently also has a recent history of pneumonia and also influenza A infection. Surgical history is not known. The rest of the history is not known. SOCIAL HISTORY: Not known. It is not clear whether he ever was a smoker. Not much is known about his occupational or his family history. REVIEW OF SYSTEMS: Review of systems could not really be obtained on this patient. The patient is sort of lethargic and somnolent. He just mumbles words. They were very difficult to understand. He does not really make any sense. Gathering the information from the ER mane, he appears to have maybe fever, decreased mental status, failure to thrive, weight loss and just declining medical health over the last week or so prior to admission. PHYSICAL EXAMINATION: Current vital signs are reviewed. Temperature is 99.1, heart rate 90, respiratory rate 17, blood pressure 158/79, mean 105, room-air saturation 90%. Appears in no acute distress. No respiratory distress. His eyes are closed. He seems very lethargic and somnolent. He does not answer in full sentences. HEENT examination is grossly unremarkable. Mucous membranes appear dry. NECK: Supple. Full range of motion. No adenopathy. Cardiovascular examination reveals regular rhythm and rate. Heart rate about 90 beats per minute. Heart sounds are distant. LUNGS: A few scattered rhonchi. He does not take deep breaths. Difficult to assess his lungs. Breath sounds equal bilaterally. ABDOMEN: Soft. Bowel sounds are not noted. Extremities are intact. No cyanosis, clubbing or edema. Skin without rash. Neurologic examination could not be adequately assessed. LAB STUDIES: Microbiological studies are thus far negative. Laboratory data includes a white count of 8.5, hemoglobin 11.5, hematocrit 35.4 and a platelet count of 154,000. Sodium is creeping up to 150, potassium 4.5, chloride 119, CO2 23. Anion gap is 8. BUN and creatinine were 40 and 0.94. CK is 731. Urine is actually relatively normal-appearing. Influenza A studies are positive. Radiographic studies show bilateral lower lobe infiltrates which are patchy in nature; could be consistent with atelectasis or pneumonia. There is a left upper lobe nodular lesion which appears stable. A repeat chest x-ray done the next day showed pretty much similar findings of diffuse bilateral infiltrates. Again, this could represent fluid, atelectasis or pneumonia. Microbiologic studies are thus far negative. His medications are reviewed. He is currently on [facility] with DuoNeb, Tamiflu for his influenza and Zosyn for possible healthcare-acquired pneumonia. He is on Symbicort but probably will not get the medication properly, so that will be discontinued. ASSESSMENT: 1. Influenza A, possibly complicated by bibasilar/bilateral pneumonia, which may be healthcare-acquired. 2. Severe Parkinson's disease. 3. Skin cancer. 4. Dementia. 5. Degenerative joint disease. 6. Prior history of pneumonia. 7. Poor mental status, which may reflect underlying sepsis and/or the patient's dementia/Parkinson's disease. PLAN: Antibiotic was switched to Zosyn, given the fact that he has been in the detention over at [facility]. The patient's Symbicort will be discontinued. I agree with the antibiotics. I agree with the updrafts. Prognosis is guarded. We should continue the Tamiflu for 5 days twice a day. No additional recommendations are made. He is NO CODE. I think that is appropriate. JAYLEN / ALY: [id number] /
[2019-01-04] MEDS: PIPERACILLIN-TAZOBACTAM 3.375 GM in SODIUM CHLORIDE 0.9% 100 ML IVPB SCH ×2 (16:55→23:41)
[2019-01-04] MEDS: DIVALPROEX SPRINKLE 125 MG CAP.SPRINK PO SCH (21:36)
[2019-01-04] MEDS: ASPIRIN 81 MG PO SCH (21:37)
[2019-01-04] MEDS: MIRTAZAPINE 15 MG TAB PO SCH (21:37)
[2019-01-04] MEDS: OSELTAMIVIR 60 MG/10 ML ORAL SYRINGE PO SCH (21:42)
[2019-01-04] MEDS: SENNOSIDES 8.6 MG TAB PO SCH (21:43)
[2019-01-04] MEDS: MULTIVITAMINS, THERA 1 EACH TAB PO SCH (21:43)
[2019-01-04] MEDS: POLYETHYLENE GLYCOL 3350 17 GM POWD.PACK PO SCH (21:47)
[2019-01-04] MEDS: ACETAMINOPHEN SUPPOSITORY 650 MG SUPP RECTAL PRN (22:11)
[2019-01-05] MEDS ORDERED: WATER IV SCH (00:30)
[2019-01-05] MEDS ORDERED: POTASSIUM CHLORIDE IV SCH (00:30)
[2019-01-05] MEDS ORDERED: DEXTROSE 5% IV SCH (00:30)
[2019-01-05] MEDS: IPRATROPIUM-ALBUTEROL 3 ML NEB INHALATION PRN (00:32)
[2019-01-05] MEDS: IPRATROPIUM-ALBUTEROL 3 ML NEB INHALATION SCH ×4 (07:49→19:17)
--- NOTE | 2019-01-05 08:20 | PN ---
PROGRESS NOTE DATE OF SERVICE: 01/04/2019 This 88-year-old gentleman who was admitted with bilateral pneumonia had change in mental status after small dose of Xanax last night. The patient is much more drowsy today. No chest pain. No palpitations. Patient also had flu. The most recent chest x-ray which was personally reviewed by me showed chronic changes. REVIEW OF SYSTEMS: Could not be taken because the patient's change mental status. PHYSICAL EXAM: The patient is stuporous. Pulse is 103. Blood pressure 147/68, temperature 100.7, pulse ox 89 percent on 6 L. HEENT: Conjunctivae normal. Neck is no jugular venous distention. No carotid bruit. Cardiac: S1, S2 muffled. Respiration: Breath sounds diminished in the bases. Bilateral scattered rhonchi and crackles. Abdomen is soft, nontender. Legs are no edema. No swelling. CENTRAL NERVOUS SYSTEM: No focal deficits. LABS: WBC 8.8, hemoglobin 11.5. Sodium is 150, potassium 4.5, creatinine kinase 731. CURRENT MEDICATIONS ARE: Reviewed and include: 1. Tylenol suppository 650 Q p.r.n. 2. [place] 5 mg. 3. DuoNeb q.i.d. and p.r.n. 4. Aspirin. 5. Lioresal. 6. Dulcolax. 7. Carbidopa/L-dopa. 8. Pepcid. 9. Heparin. 10.Remeron. 11.Multivitamins. 12.Tamiflu. ASSESSMENT: 1. Bilateral pneumonia possibly gram-negative with possible sepsis present on admission. 2. Acute influenza A with possible recurrence. 3. Change in mental status acute on chronic metabolic encephalopathy. 4. Hypernatremia. 5. Parkinson's. 6. History of recent flu. 7. Dehydration with mild acute renal failure with acute renal failure, present on admission. 8. Mild history of protein calorie malnutrition. 9. Increased creatinine kinase. 10.Mild rhabdomyolysis. 11.History of dementia. 12.History of degenerative joint disease. 13.History of skin cancer. 14.NO CODE, NO CPR, NO VENT. RECOMMENDATIONS AND DISCUSSION: In this 88-year-old gentleman who presented with multiple complex medical issues, we will monitor the patient closely, continue the current medications. Continue symptomatic treatment. We will obtain cultures. The blood cultures are negative so far. Symptomatic treatment. Continue with broad-spectrum IV antibiotics. Otherwise, I would also recommend repeat chest x-ray. Change the IV fluids to D5 water. Guarded prognosis. Further recommendations to follow. MMODL / IJN: [id number] /
[2019-01-05 08:58] LABS: Basophils % (A) 0 %; Eosinophils % (A) 0 %; HCT 34.3 % (39.0-53.0); HGB 11.2 gm/dL (13.0-17.5); Lymphocytes # (A) 1.1 k/uL (1.0-4.8); Lymphocytes % (A) 10 %; MCH 30.8 pg (25.0-35.0); MCHC 32.6 g/dL (31.0-37.0); MCV 94.6 fL (80.0-100.0); Mean Platelet Volume 10.4; Monocytes # (A) 0.7 k/uL (0-1.0); Monocytes % (A) 7 %; Neutrophils # (A) 9.2 k/uL (1.3-7.7); Neutrophils % (A) 83 %; Platelet Count 191 k/uL (150-450); RBC 3.62 m/uL (4.30-5.90); RDW 15.5 % (11.5-15.5); WBC 11.1 k/uL (3.8-10.6)
[2019-01-05 09:14] LABS: Calcium 8.4 mg/dL (8.4-10.2); Potassium 4.1 mmol/L (3.5-5.1)
[2019-01-05] MEDS: PANTOPRAZOLE 40 MG TABLET PO SCH (10:29)
[2019-01-05] MEDS: CARBIDOPA-LEVODOPA 25-250 MG 1 EACH TAB PO SCH (10:29)
[2019-01-05] MEDS: DIVALPROEX 250 MG TABLET.DR PO SCH (10:30)
[2019-01-05] MEDS: HEPARIN SODIUM,PORCINE 5,000 UNIT/ML 1 ML VIAL SQ SCH (10:30)
[2019-01-05] MEDS: FAMOTIDINE 20 MG TAB PO SCH (10:31)
[2019-01-05 11:09] VITALS: RESP 16
[2019-01-05] MEDS: PIPERACILLIN-TAZOBACTAM 3.375 GM in SODIUM CHLORIDE 0.9% 100 ML IVPB SCH (11:13)
--- NOTE | 2019-01-05 14:19 | P.PN ---
Subjective Progress Note Date: 01/05/19 Principal diagnosis: Acute hypoxemic respiratory failure secondary to influenza A, complicated by basilar pneumonia. Healthcare acquired. The patient is seen today in follow-up on the regular medical floor. He is currently resting comfortably in bed. Maintaining O2 saturations in the low 90s on 4 L/m per nasal cannula. He is febrile with axillary temp of 100.5. We'll culture reveals no growth to date. Urine culture is negative. White count is 11.1. Hemoglobin 11.2. Creatinine 1.04. Remains on bronchodilators, Tamiflu, Zosyn. Objective - Vital Signs Vital signs: Vital Signs Temp 100.5 F H 01/05/19 11:06 Pulse 100 01/05/19 11:33 Resp 16 01/05/19 11:06 BP 140/62 01/05/19 11:06 Pulse Ox 91 L 01/05/19 11:06 Intake & Output 01/04/19 01/05/19 01/05/19 18:59 06:59 18:59 Intake Total 800 925 Balance 800 925 Intake: Intake, IV Titration 800 925 Amount Dextrose 5% in Water 1, 225 000 ml @ 75 mls/hr IV . [id number] MABLE with Potassium Chloride 10 meq Rx#:[id number] Piperacillin-Tazobactam 3 100 .375 gm In Sodium Chloride 0.9% 100 ml @ 25 mls/hr IVPB Q8HR MABLE Rx# :[id number] Sodium Chloride 0.9% 1, 800 600 000 ml @ 100 mls/hr IV . Q10H MABLE Rx#:[id number] Other: Voiding Method Diaper Diaper Diaper # Voids 3 3 # Bowel Movements 1 2 - Exam GENERAL EXAM: Alert, frail, cachectic 88-year-old gentleman appears comfortable in no apparent distress. On 4 L nasal cannula. HEAD: Normocephalic. EYES: Normal reaction of pupils, equal size. NOSE: Clear with pink turbinates. THROAT: No erythema or exudates. NECK: No masses, no JVD. CHEST: No chest wall deformity. LUNGS: Equal air entry with bilateral scattered rhonchi.. CVS: S1 and S2 normal with no audible murmur, regular rhythm. ABDOMEN: No hepatosplenomegaly, normal bowel sounds, no guarding or rigidity. SPINE: No scoliosis or deformity SKIN: No rashes CENTRAL NERVOUS SYSTEM: No focal deficits, tone is normal in all 4 extremities. EXTREMITIES: There is no peripheral edema. No clubbing, no cyanosis. Peripheral pulses are intact. - Labs CBC & Chem 7: 01/05/19 08:15 01/05/19 08:15 Labs: Abnormal Lab Results - Last 24 Hours (Table) 01/05/19 01/05/19 Range/Units 08:15 08:15 WBC 11.1 H (3.8-10.6) k/uL RBC 3.62 L (4.30-5.90) m/uL Hgb 11.2 L (13.0-17.5) gm/dL Hct 34.3 L (39.0-53.0) % Neutrophils # 9.2 H (1.3-7.7) k/uL Sodium 148 H (137-145) mmol/L Chloride 119 H (98-107) mmol/L BUN 34 H (9-20) mg/dL Microbiology - Last 24 Hours (Table) 01/02/19 14:25 Blood Culture - Preliminary Blood No Growth after 48 hours 01/03/19 02:15 Urine Culture - Final Urine,Catheterized Assessment and Plan Assessment: Impression: #1 Acute hypoxemic respiratory failure secondary to basilar pneumonia, healthcare acquired, complicated by influenza A. #2 Severe Parkinson's disease. #3 History of skin cancer. #4 dementia. #5 Degenerative joint disease. #6 Previous history of pneumonias. #7 Poor mental status which may reflect underlying sepsis and/or the patient's dementia/Parkinson's disease. Plan: The patient was seen and evaluated by Dr. Hart. We'll continue with his current treatment plan including Zosyn, Tamiflu, bronchodilators. The patient is a DO NOT RESUSCITATE/DO NOT INTUBATE CODE STATUS. We'll continue to follow. I, the cosigning physician, performed a history & physical examination of the patient. Lungs sounds few scattered rhonchi. Maintaining good O2 saturations in the 90s on 4 L/m per nasal cannula. I discussed the assessment and plan of care with my nurse practitioner, Jennifer Huang. I attest to the above note as dictated by her.
[2019-01-05] MEDS: ACETAMINOPHEN SUPPOSITORY 650 MG SUPP RECTAL PRN (15:24)
[2019-01-05 18:52] VITALS: BP 107/58; PULSE 78; TEMP 98.7
--- NOTE | 2019-01-06 08:11 | PN ---
PROGRESS NOTE DATE OF SERVICE: 01/05/2019 This 88-year-old gentleman who was admitted with bilateral pneumonia possibly influenza A is being closely monitored. Patient is confused. No chest pain. No palpitations. No fever. On exam the patient is confused. Pulse is 78, blood pressure 107/58, respiratory rate 16, temperature 98.4, pulse ox 89% on room air. HEENT: Conjunctivae normal. NECK: No jugular venous distention. CARDIOVASCULAR: S1, S2 muffled. RESPIRATION: Breath sounds diminished in the bases. Bilateral scattered rhonchi and crackles. ABDOMEN soft. Nervous system: Unchanged. LAB STUDIES: WBC 11.1, hemoglobin 11.2. ASSESSMENT: 1. Bilateral pneumonia with possibly gram-negative with possible sepsis present on admission. 2. Acute influenza A with possible recurrence. 3. Change in mental status with acute on chronic metabolic encephalopathy. 4. Hypernatremia. 5. Parkinson's. 6. History of recent flu. 7. Dehydration with mild acute renal failure, present on admission. 8. Mild protein calorie malnutrition. 9. Increased creatinine kinase. 10.Mild rhabdomyolysis. 11.History of dementia. 12.History of degenerative joint disease. 13.History of skin cancer. 14.NO CODE, NO CPR, NO VENT. RECOMMENDATIONS AND DISCUSSION: Recommend to continue to monitor. Continue with antibiotics. Bronchodilators. Continue the rest of the medications. Prognosis extremely guarded. Patient is NO CODE. Further recommendations to follow. MMNIKOL / AUDREYN: [id number] /
--- NOTE | 2019-01-07 15:04 | DS ---
DISCHARGE SUMMARY SUMMARY: The preliminary cause of is acute influenza A. Other diagnoses are: 1. Bilateral pneumonia with possibly gram-negative with possible sepsis present on admission. 2. Change in mental status with acute on chronic metabolic encephalopathy. 3. Hypernatremia. 4. Parkinson's. 5. History of recent flu. 6. History of dehydration with mild acute renal failure, present on admission. 7. Mild protein calorie malnutrition. 8. Increased creatine kinase. 9. Mild rhabdomyolysis. 10.History of dementia. 11.Degenerative joint disease. 12.History of skin cancer. 13.No Code, No CARDIOPULMONARY RESUSCITATION, NO VENTILATOR. HISTORY OF PRESENT ILLNESS: This 88-year-old gentleman with a past medical history of multiple medical problems was admitted with bilateral pneumonia and with possible sepsis. Patient on antibiotics. Flu was also positive. The flu was also positive recently, which was treated also, so possibly the patient had recurrence of flu at this point. The patient was being closely monitored and was rather stable, even though the sensorium did not improve much. As mentioned earlier, patient was given antibiotics and other measures, However, the patient suddenly went to cardiorespiratory arrest and . The preliminary cause of was thought to be due to influenza and its associted complications such as pneumonia. The prognosis remained extremely guarded throughout the hospital stay because of above mentioned multiple complex medical issues in elderly patient. The patient was already NO CODE and so active resuscitative measures were not pursued. Please refer to the multiple consultations and staff documentation for further details. MMODL / IJN: [id number] / MTDD
== END 2019-01-05 21:25 | disposition expired | DRG 871 ==
LOC: EC 13:47 → 4SSUR 16:17
PROVIDERS: ADMIT Internal Medicine; ATTEND Internal Medicine
DX: A41.9 Sepsis, unspecified organism (principal); E43 Unspecified severe protein-calorie malnutrition; G93.41 Metabolic encephalopathy; J96.01 Acute respiratory failure with hypoxia; J10.08 Influenza due to other identified influenza virus with other specified pneumonia; J15.6 Pneumonia due to other Gram-negative bacteria; Z68.1 Body mass index [BMI] 19.9 or less, adult; E87.0 Hyperosmolality and hypernatremia; M62.82 Rhabdomyolysis; N17.9 Acute kidney failure, unspecified; E86.0 Dehydration; F02.80 Dementia in other diseases classified elsewhere, unspecified severity, without behavioral disturbance, psychotic disturbance, mood disturbance, and anxiety; G20 Parkinson's disease; G30.9 Alzheimer's disease, unspecified; I46.9 Cardiac arrest, cause unspecified; I51.7 Cardiomegaly; M19.90 Unspecified osteoarthritis, unspecified site; R62.7 Adult failure to thrive; Y95 Nosocomial condition; Z66 Do not resuscitate; Z79.82 Long term (current) use of aspirin; Z79.899 Other long term (current) drug therapy; Z85.828 Personal history of other malignant neoplasm of skin; Z87.01 Personal history of pneumonia (recurrent); Z79.891 Long term (current) use of opiate analgesic
CPT/HCPCS: 36415; 71046; 80048; 80053; 80164; 81001; 82550; 83605; 83735; 83880; 84484; 85025; 85610; 85730; 87040; 87086; 87502; 93005; 93306; 94640; 94760; 96360; 96361; 99285